=== PATIENT | female | born 1935 | race Caucasian/White ===

== ENCOUNTER → 2016-10-10 | Outpatient (CLI) | payer MEDICARE, OTHER ==
[~2016-10-10] VITALS: Ht 167.6 cm; Wt 82.6 kg
[~2016-10-10] MED LIST: AMLO5TAB2 PO; ASPI1TAB PO; ASPI81TA2 PO; ATEN25TA PO; CENT1TAB PO; CENTTAB PO; CHLO25TA3 PO; CLAR10CA3 PO; CO Q400C2 PO; ELIQ5TAB PO; FERR325T3 PO; FLAX100012 PO; FLAX10002 PO; FLAX10005 PO; HYDR-4266 PO; HYDR25TAB PO; K-TA1TAB PO; METO-209 PO; METO100T PO; METO50TA2 PO; MICARDIS PO; MULT1TAB18 PO; NEXI40CA PO; NITR4TASL SL; NORC1TAB4 PO; NS 1,000 ML IV SCH; OSCA200T PO; PROPOFOL 200 MG/20 ML VIAL As Ordered ONE; SENN1TAB2 PO; SIMV20TA2 PO; SIMV40TA2 PO; SPIR25TA2 PO; TYLE325T5 PO
--- NOTE | 2016-10-10 07:46 | ROOR ---
Patient Name: Yael Steward Procedure Date: 10/10/2016 7:29 AM Date of : 1935 Age: 81 Room: [facility] Gender: Female Note Status: Finalized Procedure: Colonoscopy Indications: High risk colon cancer surveillance: Personal history of colon cancer, Last colonoscopy: August 2015 Providers: Simon PALACIOS MD Referring MD: Ignacio Riley MD Requesting Provider: Medicines: Monitored Anesthesia Care Complications: No immediate complications. Procedure: Pre-Anesthesia Assessment: - The heart rate, respiratory rate, oxygen saturations, blood pressure, adequacy of pulmonary ventilation, and response to care were monitored throughout the procedure. The Colonoscope was introduced through the anus and advanced to the ileocolonic anastomosis. The colonoscopy was performed without difficulty. The patient tolerated the procedure well. The quality of the bowel preparation was good. Findings: The perianal and digital rectal examinations were normal. There was evidence of a prior functional end-to-end ileo-colonic anastomosis in the transverse colon. This was patent and was characterized by healthy appearing mucosa. The anastomosis was traversed. Multiple medium-mouthed diverticula were found in the sigmoid colon. There was evidence of diverticular spasm. The exam was otherwise without abnormality on direct and retroflexion views. (Exam: Complete, Prep: Good or Excellent.) Impression: - Patent functional end-to-end ileo-colonic anastomosis, characterized by healthy appearing mucosa. - Severe diverticulosis in the sigmoid colon. There was evidence of diverticular spasm. - The examination was otherwise normal on direct and retroflexion views. - No specimens collected. Recommendation: - Repeat colonoscopy in 1 year for surveillance based on personal history of colon cancer. Simon Palacios MD Simon PALACIOS MD 10/10/2016 7:46:25 AM This report has been signed electronically. Number of Addenda: 0 Note Initiated On: 10/10/2016 7:29 AM Estimated Blood Loss: Estimated blood loss: none.
[2016-10-10 08:05] VITALS: BP 163/99
== END | disposition home or self-care (01) ==
LOC: M OPP 06:49
PROVIDERS: ATTEND Internal Medicine Gastroenterology
DX: Z08 Encounter for follow-up examination after completed treatment for malignant neoplasm (principal); Z85.038 Personal history of other malignant neoplasm of large intestine; K57.30 Diverticulosis of large intestine without perforation or abscess without bleeding; I48.91 Unspecified atrial fibrillation; I25.10 Atherosclerotic heart disease of native coronary artery without angina pectoris; I10 Essential (primary) hypertension; D64.9 Anemia, unspecified; M19.90 Unspecified osteoarthritis, unspecified site; F33.9 Major depressive disorder, recurrent, unspecified; F41.9 Anxiety disorder, unspecified; Z98.0 Intestinal bypass and anastomosis status; Z95.5 Presence of coronary angioplasty implant and graft; I25.2 Old myocardial infarction; Z87.891 Personal history of nicotine dependence; Z79.899 Other long term (current) drug therapy; Z79.82 Long term (current) use of aspirin; Z88.0 Allergy status to penicillin

== ENCOUNTER 2018-04-02 08:52 | Emergency (ER) | payer MEDICARE, OTHER | END 2018-04-02 11:29 | disposition home or self-care (01) | LOC: M ED 08:52 | DX: M25.572 Pain in left ankle and joints of left foot (principal); I10 Essential (primary) hypertension; K21.9 Gastro-esophageal reflux disease without esophagitis; I25.10 Atherosclerotic heart disease of native coronary artery without angina pectoris; Z79.899 Other long term (current) drug therapy; Z79.82 Long term (current) use of aspirin; Z79.01 Long term (current) use of anticoagulants; Z88.0 Allergy status to penicillin; Z87.891 Personal history of nicotine dependence | CPT/HCPCS: 93971 ==

== ENCOUNTER 2020-03-20 10:36 | Emergency (ER) | payer MEDICARE, OTHER ==
[~2020-03-20] VITALS: Ht 167.6 cm; Wt 75.6 kg
[~2020-03-20 10:36] MED LIST changes: +AMLO1TAB24 PO; -AMLO5TAB2 PO; -ASPI1TAB PO; +ASPI81TA26 PO; +HYDR-2541 PO; +HYDR-3910 PO; -HYDR-4266 PO; -HYDR25TAB PO; -METO-209 PO; +METO1TAB33 PO; -NORC1TAB4 PO; +NORC1TAB7 PO; -NS 1,000 ML IV SCH; -PROPOFOL 200 MG/20 ML VIAL As Ordered ONE; +SENN-53 PO; -SENN1TAB2 PO; -SIMV40TA2 PO; +SIMV40TA20 PO; +SPIR-10 PO; -SPIR25TA2 PO
[2020-03-20 12:48] LABS: BASO % 0.4 % (0.0-1.0); EOS # 0.1 10^3/uL (0.0-0.5); EOS % 1.3 % (0.0-3.0); HEMOGLOBIN 15.5 g/dl (12.0-15.5); LYMPH # 2.1 10^3/uL (1.5-5.0); LYMPH % 22.4 % (24.0-44.0); MEAN CORPUSCULAR VOLUME 91.1 fl (80.0-96.0); MONO # 0.7 10^3/uL (0.0-0.8); MONO % 7.8 % (0.0-5.0); NEUTROPHILS # 6.2 10^3/uL (1.5-8.5); NEUTROPHILS % 67.8 % (36.0-66.0); PLATELET COUNT, AUTOMATED 164 10^3/uL (150-450); RED BLOOD COUNT 5.16 10^6/uL (4.00-5.40); WHITE BLOOD COUNT 9.2 10^3/uL (4.0-10.0)
[2020-03-20 13:22] LABS: ACETAMINOPHEN LEVEL < 2.0 UG/ML (10.0-30.0); ALBUMIN 3.8 GM/DL (3.2-5.2); ALT/SGPT 23 U/L (12-78); BILIRUBIN,DIRECT 0.2 MG/DL (0.0-0.2); BILIRUBIN,TOTAL 0.6 MG/DL (0.2-1.0); BLOOD UREA NITROGEN 14 MG/DL (7-18); CARBON DIOXIDE LEVEL 30 MEQ/L (21-32); CHLORIDE LEVEL 106 MEQ/L (98-107); CREATININE FOR GFR 0.81 MG/DL (0.55-1.30); GLOMERULAR FILTRATION RATE > 60.0 (>32); GLUCOSE, FASTING 77 MG/DL (70-100); POTASSIUM SERUM 4.3 MEQ/L (3.5-5.1); RHEUMATOID FACTOR QUANT < 10.0 IU/ML (<15.0); SALICYLATE LEVEL < 1.7 MG/DL (5.0-30.0); SODIUM LEVEL 138 MEQ/L (136-145); TOTAL PROTEIN 6.9 GM/DL (6.4-8.2)
[2020-03-20 13:27] LABS: ERYTHROCYTE SEDIMENTATION RATE 4 mm/hr (0-30)
[2020-03-20 13:39] VITALS: BP 153/90
[2020-03-20 13:42] LABS: AMPHETAMINES LEVEL URINE NEGATIVE (NEGATIVE); BARBITURATES URINE NEGATIVE (NEGATIVE); BENZODIAZEPINES URINE NEGATIVE (NEGATIVE); CANNABINOIDS URINE NEGATIVE (NEGATIVE); COCAINE METABOLITE URINE NEGATIVE (NEGATIVE); METHADONE URINE NEGATIVE (NEGATIVE); OPIATES URINE NEGATIVE (NEGATIVE); PHENCYCLIDINE URINE NEGATIVE (NEGATIVE)
== END 2020-03-20 13:40 | disposition home or self-care (01) ==
LOC: M ED 10:36
DX: R53.81 Other malaise (principal); R53.83 Other fatigue; E11.9 Type 2 diabetes mellitus without complications; I10 Essential (primary) hypertension; E78.00 Pure hypercholesterolemia, unspecified; Z95.5 Presence of coronary angioplasty implant and graft; Z79.899 Other long term (current) drug therapy; Z79.82 Long term (current) use of aspirin; Z88.0 Allergy status to penicillin
CPT/HCPCS: 36415; 80048; 80076; 80307; 81001; 85025; 85652; 86431; 87086; 99284; G0480

== ENCOUNTER → 2020-05-24 | Outpatient (CLI) | payer MEDICARE, OTHER ==
[~2020-05-24] MED LIST changes: +MULTCAP PO
== END ==
LOC: M LABSMTC 10:26
PROVIDERS: ATTEND Anesthesiology
DX: Z01.812 Encounter for preprocedural laboratory examination (principal); Z20.828 Contact with and (suspected) exposure to other viral communicable diseases

== ENCOUNTER 2020-05-29 07:59 | Day surgery (SDC) | payer MEDICARE, OTHER ==
[~2020-05-29] VITALS: Ht 167.6 cm; Wt 74.4 kg
[~2020-05-29 07:59] MED LIST changes: +LIDOCAINE 2% 100MG/5ML SDV (FOR ANES.) As Ordered ONE; +NS 1,000 ML IV ONE; +propofoL 200 MG/20 ML VIAL As Ordered ONE
--- NOTE | 2020-05-29 09:32 | ROOR ---
Patient Name: Yael Steward Procedure Date: 05/29/2020 8:59 AM Date of : 1935 Age: 85 Room: [facility] Gender: Female Note Status: Finalized Procedure: Colonoscopy Indications: High risk colon cancer surveillance: Personal history of colon cancer (resection in 2015) Providers: Simon PALACIOS MD Referring MD: Simon Denton MD, Ignacio Riley MD Requesting Provider: Medicines: Monitored Anesthesia Care Complications: No immediate complications. Procedure: Pre-Anesthesia Assessment: - The heart rate, respiratory rate, oxygen saturations, blood pressure, adequacy of pulmonary ventilation, and response to care were monitored throughout the procedure. The Colonoscope was introduced through the anus and advanced to the ileocolonic anastomosis. The colonoscopy was performed without difficulty. The patient tolerated the procedure well. The quality of the bowel preparation was good. Findings: The perianal and digital rectal examinations were normal. There was evidence of a prior end-to-side ileo-colonic anastomosis in the mid transverse colon. This was patent and was characterized by healthy appearing mucosa. Multiple small and large-mouthed diverticula were found in the sigmoid colon. There was evidence of diverticular spasm. Small Internal Hemorrhoids. The exam was otherwise without abnormality on direct and retroflexion views. Impression: - Patent end-to-side ileo-colonic anastomosis, characterized by healthy appearing mucosa. - Moderate diverticulosis in the sigmoid colon. There was evidence of diverticular spasm. - Small Internal Hemorrhoids. - The examination was otherwise normal on direct and retroflexion views. - No specimens collected. Recommendation: - No repeat colonoscopy due to age. Procedure Code(s): --- Professional --- 40351, Colonoscopy, flexible; diagnostic, including collection of specimen(s) by brushing or washing, when performed (separate procedure) Diagnosis Code(s): --- Professional --- K57.30, Diverticulosis of large intestine without perforation or abscess without bleeding Z98.0, Intestinal bypass and anastomosis status Z85.038, Personal history of other malignant neoplasm of large intestine CPT copyright 2019 [employer]. All rights reserved. The codes documented in this report are preliminary and upon medical coder review may be revised to meet current compliance requirements. Simon Palacios MD Simon PALACIOS MD 05/29/2020 9:33:07 AM Electronically signed by Simon PALACIOS MD Number of Addenda: 0 Note Initiated On: 05/29/2020 8:59 AM Estimated Blood Loss: Estimated blood loss: none.
[2020-05-29 09:50] VITALS: BP 170/87
== END 2020-05-29 10:25 | disposition home or self-care (01) ==
LOC: M OPP 07:59
PROVIDERS: ATTEND Internal Medicine Gastroenterology
DX: Z12.11 Encounter for screening for malignant neoplasm of colon (principal); Z85.038 Personal history of other malignant neoplasm of large intestine; Z98.0 Intestinal bypass and anastomosis status; K57.30 Diverticulosis of large intestine without perforation or abscess without bleeding; K64.8 Other hemorrhoids; I48.91 Unspecified atrial fibrillation; Z95.5 Presence of coronary angioplasty implant and graft; Z87.891 Personal history of nicotine dependence; Z79.899 Other long term (current) drug therapy; Z88.0 Allergy status to penicillin

== ENCOUNTER → 2020-09-06 | Outpatient (REF) | payer MEDICARE, OTHER ==
[~2020-09-06] MED LIST changes: -LIDOCAINE 2% 100MG/5ML SDV (FOR ANES.) As Ordered ONE; -NS 1,000 ML IV ONE; -propofoL 200 MG/20 ML VIAL As Ordered ONE
== END ==
LOC: M LAB REF 16:47
PROVIDERS: ATTEND Nurse Practitioner Family
DX: N39.0 Urinary tract infection, site not specified (principal)

== ENCOUNTER → 2020-11-02 | Outpatient (REF) | payer MEDICARE, OTHER | LOC: M LAB REF 16:53 | PROVIDERS: ATTEND Nurse Practitioner Family | DX: N39.0 Urinary tract infection, site not specified (principal) ==

== ENCOUNTER 2021-02-18 14:27 | Inpatient (IN) | payer MEDICARE, OTHER ==
[~2021-02-18] VITALS: Ht 167.6 cm; Wt 80.9 kg
[2021-02-18] MEDS ORDERED: ACETAMINOPHEN 325 MG TAB PO ONE (14:35)
--- NOTE | 2021-02-18 15:08 | REP ---
INDICATION: DYSPNEA/COUGH COMPARISON: 03/01/2014 TECHNIQUE: Portable AP view of the chest FINDINGS: The mediastinum and cardiac silhouette are stable and within normal limits for portable technique. The lung hitchcock are clear without acute consolidation, effusion, or pneumothorax. Skeletal structures are intact. IMPRESSION: No acute cardiopulmonary process appreciated. <Electronically signed by Luan Lowe > 02/18/21 [id number]
[2021-02-18 15:10] LABS: BASO % 0.3 % (0.0-1.0); EOS % 0.2 % (0.0-3.0); HEMATOCRIT 47.4 % (36.0-47.0); HEMOGLOBIN 16.2 g/dl (12.0-15.5); LYMPH # 0.4 10^3/uL (1.5-5.0); LYMPH % 3.9 % (24.0-44.0); MEAN CORPUSCULAR HEMOGLOBIN 29.6 pg (27.0-33.0); MEAN CORPUSCULAR HGB CONC 34.2 g/dl (32.0-36.5); MEAN CORPUSCULAR VOLUME 86.5 fl (80.0-96.0); MONO # 0.5 10^3/uL (0.0-0.8); MONO % 4.6 % (2.0-8.0); NEUTROPHILS % 90.5 % (36.0-66.0); PLATELET COUNT, AUTOMATED 159 10^3/uL (150-450); RED BLOOD COUNT 5.48 10^6/uL (4.00-5.40)
[2021-02-18 15:46] LABS: ALBUMIN 3.5 GM/DL (3.2-5.2); ALT/SGPT 22 U/L (12-78); BILIRUBIN,DIRECT 0.4 MG/DL (0.0-0.2); BILIRUBIN,TOTAL 1.2 MG/DL (0.2-1.0); BLOOD UREA NITROGEN 14 MG/DL (7-18); CALCIUM LEVEL 8.6 MG/DL (8.8-10.2); CARBON DIOXIDE LEVEL 25 MEQ/L (21-32); CHLORIDE LEVEL 106 MEQ/L (98-107); CK-MB VALUE MASS < 1.0 NG/ML (<3.6); CPK CREATINE PHOSPHOKINASE 36 U/L (26-192); CREATININE FOR GFR 0.91 MG/DL (0.55-1.30); GLOMERULAR FILTRATION RATE > 60.0 (>32); GLUCOSE, FASTING 116 MG/DL (70-100); MB/CK RELATIVE INDEX 2.78 (< OR =4); NT-PRO BNP 1604 PG/ML (<450); POTASSIUM SERUM 3.5 MEQ/L (3.5-5.1); SODIUM LEVEL 139 MEQ/L (136-145); THYROID STIMULATING HORMONE 0.132 uIU/ML (0.358-3.740); TROPONIN I < 0.02 NG/ML (< 0.10)
[2021-02-18 16:16] LABS: RSV AMPLIFICATION NEGATIVE (NEGATIVE)
[2021-02-18] MEDS ORDERED: ISOVUE-370 76% 100ML VIAL As Ordered ONE (16:50)
--- NOTE | 2021-02-18 17:25 | REPVR ---
PROCEDURE INFORMATION: Exam: CT Chest With Contrast; Diagnostic Exam date and time: 02/18/2021 4:57 PM Age: 85 years old Clinical indication: Fever; Additional info: Fuo TECHNIQUE: Imaging protocol: Diagnostic computed tomography of the chest with contrast. Radiation optimization: All CT scans at this facility use at least one of these dose optimization techniques: automated exposure control; mA and/or kV adjustment per patient size (includes targeted exams where dose is matched to clinical indication); or iterative reconstruction. Contrast material: ISOVUE 370; Contrast volume: 100 ml; Contrast route: INTRAVENOUS (IV); COMPARISON: CR PORTABLE CHEST X-RAY 02/18/2021 2:43 PM FINDINGS: Thyroid: Thyroid gland is enlarged and multi-nodular. Lungs: Pulmonary vascular/interstitial pattern does not suggest active pulmonary edema. No suspicious lung mass or air space process. No central endobronchial lesion. Atelectasis is present in the dependent portions of the lungs. Pleural spaces: No pleural effusion or pneumothorax. Heart: No overt cardiac enlargement or abnormal volume of pericardial fluid. Aorta: Thoracic aorta is ectatic and atherosclerotic. No focal aneurysm or dissection. Great vessels off aortic arch: Atherosclerotic calcifications in the coronary vessels. Lymph nodes: No enlarged mediastinal lymph nodes. Bones/joints: Multi-level, age-related thoracic degenerative disc disease is present. Soft tissues: No asymmetric abnormality of the extrathoracic soft tissues. IMPRESSION: 1. No acute or concerning focal thoracic abnormality to explain fever of unknown origin. 2. Ectatic atherosclerotic aorta without evidence of an acute complication. 3. Enlarged multinodular thyroid gland. This can be evaluated with outpatient sonography Electronically signed by: Los Garcia On 02/18/2021 17:24:47 PM
--- NOTE | 2021-02-18 17:28 | REPVR ---
PROCEDURE INFORMATION: Exam: CT Abdomen And Pelvis With Contrast Exam date and time: 02/18/2021 4:57 PM Age: 85 years old Clinical indication: Fever; Additional info: Fuo TECHNIQUE: Imaging protocol: Computed tomography of the abdomen and pelvis with contrast. Radiation optimization: All CT scans at this facility use at least one of these dose optimization techniques: automated exposure control; mA and/or kV adjustment per patient size (includes targeted exams where dose is matched to clinical indication); or iterative reconstruction. Contrast material: ISOVUE 370; Contrast volume: 100 ml; Contrast route: INTRAVENOUS (IV); COMPARISON: CT ABD PELVIS W/O FOL BY WIT 09/25/2015 1:39 PM FINDINGS: Liver: Liver appears normal with no focal abnormality. Gallbladder and bile ducts: Gallbladder is surgically absent. Pancreas: Pancreas appears normal. No focal mass or peripancreatic inflammation. Spleen: Spleen appears homogeneous without focal mass. Adrenal glands: Adrenal glands are normal in appearance. Kidneys and ureters: Right kidney appears normal. Left kidney demonstrates perinephric stranding and mild urothelial enhancement in the renal pelvis, along with a nonobstructive stone. An upper pole simple fluid cyst is also demonstrated measuring less than 1 cm in size. Stomach and bowel: No evidence of small bowel obstruction. Diverticular changes are present within the colon without inflammation. Appendix: Appendix is not seen. No RLQ inflammation to suggest appendicitis. Intraperitoneal space: No pneumoperitoneum. Vasculature: Atherosclerotic change present in the aorta, without aneurysm. Main portal and splenic veins enhance normally. Lymph nodes: No enlarged lymph nodes. Urinary bladder: Urinary bladder demonstrates mildly thickened wall and perivesicular stranding. Reproductive: Female reproductive organs appear unremarkable. Bones/joints: Bony structures are normal except for lumbar spine degenerative disc changes. Soft tissues: Unremarkable. IMPRESSION: 1. Perinephric stranding involving the left kidney with perhaps mildly prominent urothelial enhancement, and wall thickening and stranding around the bladder. This may likely represent cystitis and ascending urinary tract infection without obstruction or focal pyelonephritis at this point. 2. No concerning acute bowel abnormality. 3. Colonic diverticular change without active inflammation Electronically signed by: Los Garcia On 02/18/2021 17:28:35 PM
[2021-02-18] MEDS ORDERED: MOM 30ML SUSPENSION UDC PO PRN (18:10)
[2021-02-18] MEDS ORDERED: ACETAMINOPHEN TAB 650MG DOSE (2X325MG) PO PRN (18:10)
[2021-02-18] MEDS ORDERED: MAALOX 30 ML SUSP *UDC PO PRN (18:10)
--- NOTE | 2021-02-18 18:14 | HPEPDOC ---
[facility] Medical History & Physical Date of Admission Feb 18, 2021 Date of Service: Feb 18, 2021 History and Physical CHIEF COMPLAINT: Fever HISTORY OF PRESENT ILLNESS: 85-year-old female with a past medical history of CAD status post stenting, atrial fibrillation on Eliquis, CHF unspecified, colon cancer status post resection, presented to the ER from home with symptoms of dysuria and mild confusion. Found to have a fever of 104 in the emergency department. She has leukocytosis of 11,000. LA 1.5. Also found to be in atrial fibrillation with RVR, which improved after her fever decreased with Tylenol. CT chest was unremarkable however CT abdomen showing perinephric stranding involving the left kidney suggestive of possible early cystitis and pyelonephritis. PAST MEDICAL HISTORY: Afib on eliquis CAD s/p stenting GERD HLD Arthritis PAST SURGICAL HISTORY: Right hemicolectomy for colon cancer in 09/[address] Millan Cholecystectomy Tubal ligation SOCIAL HISTORY: Lives at home Patient denies smoking Patient denies etoh use Patient denies illicit drug use ALLERGIES: Please see below. REVIEW OF SYSTEMS: 10 point ROS conducted, relevant findings are noted in the HPI. HOME MEDICATIONS: Please see below. PHYSICAL EXAMINATION: VITAL SIGNS: please see below General: NAD, comfortable HEENT: PERRLA, EOMI, sclerae clear Neck: supple, normal ROM, no JVD Respiratory: lungs CTAB, no wheeze, no rales, no crackles CVS: RRR, normal S1, S2, no murmurs Abdo: soft, no masses, no hepatosplenomegaly, BS+, no rebound tenderness Extremities: no edema, pulses 2+ MSK: no joint deformities, normal ROM Neuro: no focal neuro deficits, moving all 4 extremities, CN2-12 intact. Strength 5/5 in all 4 extremities. No nystagmus. Psych: calm, cooperative, AAO x 3 LABORATORY DATA: See below. IMAGING: CT abdomen pelvis with IV contrast 02/18/2021: IMPRESSION: 1. Perinephric stranding involving the left kidney with perhaps mildly prominent urothelial enhancement, and wall thickening and stranding around the bladder. This may likely represent cystitis and ascending urinary tract infection without obstruction or focal pyelonephritis at this point. 2. No concerning acute bowel abnormality. 3. Colonic diverticular change without active inflammation CT chest with IV 02/18/2021: 1. No acute or concerning focal thoracic abnormality to explain fever of unknown origin. 2. Ectatic atherosclerotic aorta without evidence of an acute complication. 3. Enlarged multinodular thyroid gland. This can be evaluated with outpatient sonography CXR 02/18/2021: IMPRESSION: No acute cardiopulmonary process appreciated. MICROBIOLOGY: Please see below. ASSESSMENT: 85-year-old female with a past medical history of CAD status post stenting, atrial fibrillation on Eliquis, CHF unspecified, colon cancer status post resection, presented to the ER from home with symptoms of dysuria and mild confusion. Found to have a fever of 104 in the emergency department. She has leukocytosis of 11,000. LA 1.5. Also found to be in atrial fibrillation with RVR, which improved after her fever decreased with Tylenol. CT chest was unremarkable however CT abdomen showing perinephric stranding involving the left kidney suggestive of possible early cystitis and pyelonephritis. PLAN: #Sepsis 2/2 likely cystisis and pyelonephritis: COVID and flu negative. WBC 11.0. LA 1.5. T 104. Afib with RVR to 130. Give 1L bolus. Start NS 80 cc/hr. Empiric cipro. Urine cultures and blood cultures sent. #Afib with RVR: improved with fever. Resume home BB. Give IVF. Start abx. Suspect increased 2/2 sepsis. #Hx of Colon Ca: s/p [place] [address] Millan. #HTN: resume home meds #CAD: resume home meds. S/p stenting. DVT ppx: on eliquis Dispo: admission expect to last > 2 midnights Vital Signs Vital Signs Date Time Temp Pulse Resp B/P (MAP) Pulse Ox O2 Delivery O2 Flow Rate FiO2 02/18/21 17:30 136/75 (95) 02/18/21 17:27 103 92 02/18/21 16:21 100.6 02/18/21 15:06 20 Room Air Laboratory Data Labs 24H Laboratory Tests 2 02/18/21 14:50: Immature Granulocyte % (Auto) 0.5, Neutrophils (%) (Auto) 90.5H, Lymphocytes (%) (Auto) 3.9L, Monocytes (%) (Auto) 4.6, Eosinophils (%) (Auto) 0.2, Basophils (%) (Auto) 0.3, Neutrophils # (Auto) 10.0H, Lymphocytes # (Auto) 0.4L, Monocytes # (Auto) 0.5, Eosinophils # (Auto) 0.0, Basophils # (Auto) 0.0, Nucleated Red Blood Cells % (auto) 0.0, Anion Gap 8, Glomerular Filtration Rate > 60.0, Lactic Acid Level 1.5, Calcium Level 8.6L, Total Bilirubin 1.2H, Direct Bilirubin 0.4H, Aspartate Amino Transf (AST/SGOT) 23, Alanine Aminotransferase (ALT/SGPT) 22, Alkaline Phosphatase 93, Total Creatine Kinase 36, Creatine Kinase MB < 1.0, Creatine Kinase MB Relative Index 2.78, Troponin I < 0.02, VA-Qrp-X-Type Natriuretic Peptide 1604H, Total Protein 7.0, Albumin 3.5, Albumin/Globulin Ratio 1.0L, Thyroid Stimulating Hormone (TSH) 0.132L, Coronavirus (COVID- 19)(PCR) NEGATIVE, Influenza Type A (RT-PCR) NEGATIVE, Influenza Type B (RT-PCR) NEGATIVE, Respiratory Syncytial Virus (PCR) NEGATIVE 02/18/21 15:43: Urine Color YELLOW, Urine Appearance HAZY, Urine pH 6.0, Urine Specific [place] 1.009, Urine Protein 2+H, Urine Glucose (UA) NEGATIVE, Urine Ketones TRACEH, Urine Blood 2+H, Urine Nitrite NEGATIVE, Urine Bilirubin NEGATIVE, Urine Urobilinogen 0.2, Urine Leukocyte Esterase TRACEH, Urine WBC (Auto) 13H, Urine RBC (Auto) 6H, Urine Hyaline Casts (Auto) 0, Urine Bacteria (Auto) NEGATIVE, Urine Squamous Epithelial Cells 0, Urine Mucus (Auto) SMALL, Urine Sperm (Auto) CBC/BMP Laboratory Tests 02/18/21 14:50 Microbiology Microbiology 02/18/21 Urine Culture, Received Pending 02/18/21 Blood Culture, Received Pending 02/18/21 Blood Culture, Received Pending Home Medications Scheduled Amlodipine Besylate (Amlodipine Besylate) 5 Mg Tab, 5 MG PO DAILY Apixaban (Eliquis) 5 Mg Tab, 5 MG PO BID Aspirin (Aspirin EC) 81 Mg Tab, 81 MG PO DAILY Metoprolol Succinate (Metoprolol Succinate) 100 Mg Tab, 100 MG PO DAILY Multivitamin (Multivitamins) 1 Each Capsule, 1 CAP PO DAILY Nitroglycerin (Nitrostat) 0.4 Mg Subl, 0.4 MG SL ASDIRECTED Simvastatin (Simvastatin) 40 Mg Tab, 20 MG PO DAILY Spironolactone (Spironolactone) 25 Mg Tab, 25 MG PO DAILY [Micardis] , 80 MG PO DAILY Allergies Coded Allergies: Penicillins (Verified Allergy, Intermediate, 05/22/20) vomiting MILDRED HARGROVE MD Feb 18, 2021 18:14
[2021-02-18] MEDS ORDERED: NS 1,000 ML IV ONE (19:00)
[2021-02-18] MEDS: CIPROFLOXACIN 400 MG in IV 1 EA IV SCH (19:16)
--- NOTE | 2021-02-18 19:27 | ECGEPIP ---
[facility] - ED Test Date: 2021-02-18 Pat Name: ELENI SIRAEL Department: Room: - Gender: Female Database Administration Manager: LG : 1935 Requested By: Favian Jane Order Number: [id number] Reading MD: Summer Espinoza Measurements Intervals Couch Rate: 120 P: RI: QRS: -32 QRSD: 82 T: 123 QT: 314 QTc: 443 Interpretive Statements Atrial fibrillation with rapid ventricular response Left axis deviation ST & T wave abnormality, consider ischemia No prior Electronically Signed on 02-18-2021 19:26:54 EDT by Summer Espinoza
[2021-02-18 20:30] VITALS: BP 138/82
[2021-02-19] VITALS: BP 146/98
[2021-02-19 04:00] VITALS: BP 162/94
[2021-02-19 06:40] LABS: BASO % 0.3 % (0.0-1.0); EOS % 0.2 % (0.0-3.0); HEMATOCRIT 43.2 % (36.0-47.0); HEMOGLOBIN 14.6 g/dl (12.0-15.5); LYMPH # 1.1 10^3/uL (1.5-5.0); MEAN CORPUSCULAR HEMOGLOBIN 29.2 pg (27.0-33.0); MEAN CORPUSCULAR HGB CONC 33.8 g/dl (32.0-36.5); MEAN CORPUSCULAR VOLUME 86.4 fl (80.0-96.0); MONO # 0.9 10^3/uL (0.0-0.8); MONO % 8.1 % (2.0-8.0); NEUTROPHILS # 9.2 10^3/uL (1.5-8.5); PLATELET COUNT, AUTOMATED 146 10^3/uL (150-450); WHITE BLOOD COUNT 11.3 10^3/uL (4.0-10.0)
[2021-02-19 07:07] LABS: ALBUMIN 2.8 GM/DL (3.2-5.2); ALT/SGPT 22 U/L (12-78); BILIRUBIN,TOTAL 0.9 MG/DL (0.2-1.0); BLOOD UREA NITROGEN 12 MG/DL (7-18); CALCIUM LEVEL 8.9 MG/DL (8.8-10.2); CARBON DIOXIDE LEVEL 26 MEQ/L (21-32); CHLORIDE LEVEL 107 MEQ/L (98-107); CREATININE FOR GFR 0.63 MG/DL (0.55-1.30); GLOMERULAR FILTRATION RATE > 60.0 (>32); GLUCOSE, FASTING 109 MG/DL (70-100); MAGNESIUM LEVEL 1.6 MG/DL (1.8-2.4); POTASSIUM SERUM 3.5 MEQ/L (3.5-5.1); SODIUM LEVEL 140 MEQ/L (136-145); TOTAL PROTEIN 6.4 GM/DL (6.4-8.2)
[2021-02-19 08:00] VITALS: BP 146/77
[2021-02-19] MEDS: MAG SULF 1GM/100ML (MAG RUN) 1 GM in IV 1 EA IV SCH ×2 (08:33→10:01)
[2021-02-19] MEDS: CIPROFLOXACIN 400 MG in IV 1 EA IV SCH (08:33)
[2021-02-19] MEDS ORDERED: TELM1TAB33 PO (08:58)
[2021-02-19] MEDS ORDERED: AMLO1TAB25 PO (08:58)
[2021-02-19] MEDS ORDERED: METO1TAB7 PO (08:58)
[2021-02-19] MEDS ORDERED: PATIENT COMMENT (08:58)
[2021-02-19] MEDS ORDERED: POTASSIUM CHLORIDE 10 MEQ SR TABLET PO ONE (09:00)
[2021-02-19] MEDS ORDERED: HOME MED LIST COMPLETE! XX SCH (09:00)
[2021-02-19] MEDS ORDERED: NITROGLYCERIN 0.4 MG SUBL TABLET SL PRN (09:10)
[2021-02-19] MEDS: ASPIRIN 81MG ENTERIC TABLET PO SCH (10:00)
[2021-02-19] MEDS: METOPROLOL SUCC (TopROL XL) 50MG **XL** TAB PO SCH (10:00)
[2021-02-19] MEDS: APIXABAN 5 MG TAB (ELIQUIS) PO SCH ×2 (10:01→20:27)
[2021-02-19] MEDS: SPIRONOLACTONE 25 MG TAB PO SCH (10:01)
[2021-02-19] MEDS ORDERED: VANCOMYCIN HCL 1,000 MG, VIAL MATE ADAPTER 1 EACH in NS 250 ML IV SCH (10:30)
--- NOTE | 2021-02-19 10:46 | IPNPDOC ---
Date Seen The patient was seen on 02/19/21. Progress Note SUBJECTIVE: Patient seen examined at bedside. Doing well overnight. Afebrile. Heart rate has been stable at 98 bpm. Continues to be in A. fib. Denies any fevers chills chest pain shortness palpitations nausea vomiting diarrhea. Does continue to report ongoing lower abdominal pain. OBJECTIVE PHYSICAL EXAMINATION: VITAL SIGNS: please see below General: NAD, comfortable HEENT: PERRLA, EOMI, sclerae clear Neck: supple, normal ROM, no JVD Respiratory: lungs CTAB, no wheeze, no rales, no crackles CVS: RRR, normal S1, S2, no murmurs Abdo: Lower abdominal tenderness overlying the bladder. Extremities: no edema, pulses 2+ MSK: no joint deformities, normal ROM Neuro: no focal neuro deficits, moving all 4 extremities, CN2-12 intact. Strength 5/5 in all 4 extremities. No nystagmus. Psych: calm, cooperative, AAO x 3 LABORATORY DATA, IMAGING STUDIES, MICROBIOLOGY: Please see below. Echocardiogram: Ordered on 02/18/2021. Pending. DVT prophylaxis ordered?: On Eliquis ASSESSMENT AND PLAN: 85-year-old female with a past medical history of CAD status post stenting, atrial fibrillation on Eliquis, CHF unspecified, colon cancer status post resection, presented to the ER from home with symptoms of dysuria and mild confusion. Found to have a fever of 104 in the emergency department. She has leukocytosis of 11,000. LA 1.5. Also found to be in atrial fibrillation with RVR, which improved after her fever decreased with Tylenol. CT chest was unremarkable however CT abdomen showing perinephric stranding involving the left kidney suggestive of possible early cystitis and pyelonephr itis. PLAN: #Sepsis 2/2 likely cystitis and pyelonephritis: resolved. COVID and flu negative. WBC 11.3. LA 1.5. T 104. HR improved. Afebrile overnight. Received empiric ciprofloxacin x 1 day. Prelim blood cultures growing gram positive coccie in clusters and gram positive rods (2/2 bottles of 1 set, 2nd set still pending). Urine cx positive for gram neg rods. Converted cipro to vancomycin and cefepime. Repeat blood cultures ordered on 02/19/21. Patient had an echo ordered on 02/18/21 to assess for LVEF. #Afib with RVR: HR in 90s. Improved with treatment of sepsis. #Hx of Colon Ca: s/[place] [address] Millan. #elevated BNP. likely in setting of afib with RVR. Will check 2D echo. recieved 1 L NS bolus for sepsis. Euvolemic. #HTN: resume home meds. Telmisartain 20 mg qhs. Amlodipine 10 mg daioy. #CAD: resume home meds. S/p stenting. c/w ASA, eliquis. metoprolol. Simvastatin. Nitroglycerin. DVT ppx: on eliquis Dispo: admission expect to last > 2 midnights. PT and OT ordered. VS, I&O, 24H, Fishbone Vital Signs/I&O Vital Signs Date Time Temp Pulse Resp B/P (MAP) Pulse Ox O2 Delivery O2 Flow Rate FiO2 02/19/21 10:01 100 146/77 02/19/21 08:00 97.6 19 96 Room Air 02/18/21 19:15 2.0 I&O- Last 24 Hours up to 6 AM 02/19/21 06:00 Output Total 850 ml Balance -850 ml Laboratory Data 24H LABS Laboratory Tests 2 02/18/21 14:50: Immature Granulocyte % (Auto) 0.5, Neutrophils (%) (Auto) 90.5H, Lymphocytes (%) (Auto) 3.9L, Monocytes (%) (Auto) 4.6, Eosinophils (%) (Auto) 0.2, Basophils (%) (Auto) 0.3, Neutrophils # (Auto) 10.0H, Lymphocytes # (Auto) 0.4L, Monocytes # (Auto) 0.5, Eosinophils # (Auto) 0.0, Basophils # (Auto) 0.0, Nucleated Red Blood Cells % (auto) 0.0, Anion Gap 8, Glomerular Filtration Rate > 60.0, Lactic Acid Level 1.5, Calcium Level 8.6L, Total Bilirubin 1.2H, Direct Bilirubin 0.4H, Aspartate Amino Transf (AST/SGOT) 23, Alanine Aminotransferase (ALT/SGPT) 22, Alkaline Phosphatase 93, Total Creatine Kinase 36, Creatine Kinase MB < 1.0, Creatine Kinase MB Relative Index 2.78, Troponin I < 0.02, OS-Nwa-Y-Type Natriuretic Peptide 1604H, Total Protein 7.0, Albumin 3.5, Albumin/Globulin Ratio 1.0L, Thyroid Stimulating Hormone (TSH) 0.132L, Coronavirus (COVID- 19)(PCR) NEGATIVE, Influenza Type A (RT-PCR) NEGATIVE, Influenza Type B (RT-PCR) NEGATIVE, Respiratory Syncytial Virus (PCR) NEGATIVE 02/18/21 15:43: Urine Color YELLOW, Urine Appearance HAZY, Urine pH 6.0, Urine Specific [place] 1.009, Urine Protein 2+H, Urine Glucose (UA) NEGATIVE, Urine Ketones TRACEH, Urine Blood 2+H, Urine Nitrite NEGATIVE, Urine Bilirubin NEGATIVE, Urine Urobilinogen 0.2, Urine Leukocyte Esterase TRACEH, Urine WBC (Auto) 13H, Urine RBC (Auto) 6H, Urine Hyaline Casts (Auto) 0, Urine Bacteria (Auto) NEGATIVE, Urine Squamous Epithelial Cells 0, Urine Mucus (Auto) SMALL, Urine Sperm (Auto) 02/19/21 06:25: Immature Granulocyte % (Auto) 0.4, Neutrophils (%) (Auto) 81.0H, Lymphocytes (%) (Auto) 10.0L, Monocytes (%) (Auto) 8.1H, Eosinophils (%) (Auto) 0.2, Basophils (%) (Auto) 0.3, Neutrophils # (Auto) 9.2H, Lymphocytes # (Auto) 1.1L, Monocytes # (Auto) 0.9H, Eosinophils # (Auto) 0.0, Basophils # (Auto) 0.0, Nucleated Red Blood Cells % (auto) 0.0, Anion Gap 7L, Glomerular Filtration Rate > 60.0, Calcium Level 8.9, Total Bilirubin 0.9, Aspartate Amino Transf (AST/SGOT) 17, Alanine Aminotransferase (ALT/SGPT) 22, Alkaline Phosphatase 84, Total Protein 6.4, Albumin 2.8L, Albumin/Globulin Ratio 0.8L, Magnesium Level 1.6L CBC/BMP Laboratory Tests 02/18/21 14:50 02/19/21 06:25 Microbiology Microbiology 02/18/21 Urine Culture, Received Pending 02/18/21 Blood Culture, Received Pending 02/18/21 Blood Culture - Preliminary, Resulted MILDRED HARGROVE MD Feb 19, 2021 10:46
[2021-02-19] MEDS: CEFEPIME HCL 1 GM in D5W MINI-BAG PLUS 50 ML IV SCH ×2 (11:14→20:27)
[2021-02-19] MEDS: TELMISARTAN 20 MG TAB PO SCH ×2 (11:15→20:27)
[2021-02-19 12:00] VITALS: BP 136/81
[2021-02-19] MEDS: VANCOMYCIN HCL 750 MG, VIAL MATE ADAPTER 1 EACH in NS 250 ML IV SCH (12:45)
[2021-02-19] MEDS ORDERED: VANCOMYCIN HCL 750 MG, VIAL MATE ADAPTER 1 EACH in NS 250 ML IV ONE (13:00)
[2021-02-19 16:00] VITALS: BP 132/70
[2021-02-19 20:00] VITALS: BP 137/91
[2021-02-19] MEDS ORDERED: SIMVASTATIN 20 MG TAB PO SCH (21:00)
[2021-02-20] VITALS: BP 106/94
[2021-02-20] MEDS: VANCOMYCIN HCL 750 MG, VIAL MATE ADAPTER 1 EACH in NS 250 ML IV SCH (00:59)
[2021-02-20 04:00] VITALS: BP 130/93
[2021-02-20 05:46] LABS: BASO # 0.1 10^3/uL (0.0-0.2); BASO % 0.5 % (0.0-1.0); EOS # 0.2 10^3/uL (0.0-0.5); EOS % 1.7 % (0.0-3.0); HEMATOCRIT 40.9 % (36.0-47.0); HEMOGLOBIN 13.8 g/dl (12.0-15.5); LYMPH # 1.4 10^3/uL (1.5-5.0); LYMPH % 14.8 % (24.0-44.0); MEAN CORPUSCULAR HEMOGLOBIN 29.4 pg (27.0-33.0); MEAN CORPUSCULAR HGB CONC 33.7 g/dl (32.0-36.5); MONO % 9.9 % (2.0-8.0); NEUTROPHILS % 72.7 % (36.0-66.0); PLATELET COUNT, AUTOMATED 140 10^3/uL (150-450); WHITE BLOOD COUNT 9.6 10^3/uL (4.0-10.0)
[2021-02-20 05:56] LABS: ALBUMIN 2.7 GM/DL (3.2-5.2); ALT/SGPT 23 U/L (12-78); BILIRUBIN,TOTAL 0.7 MG/DL (0.2-1.0); BLOOD UREA NITROGEN 12 MG/DL (7-18); CALCIUM LEVEL 8.4 MG/DL (8.8-10.2); CARBON DIOXIDE LEVEL 25 MEQ/L (21-32); CHLORIDE LEVEL 109 MEQ/L (98-107); CREATININE FOR GFR 0.71 MG/DL (0.55-1.30); GLOMERULAR FILTRATION RATE > 60.0 (>32); GLUCOSE, FASTING 133 MG/DL (70-100); MAGNESIUM LEVEL 1.7 MG/DL (1.8-2.4); POTASSIUM SERUM 3.9 MEQ/L (3.5-5.1); SODIUM LEVEL 138 MEQ/L (136-145); TOTAL PROTEIN 5.9 GM/DL (6.4-8.2)
[2021-02-20 08:00] VITALS: BP 159/93
[2021-02-20 09:37] VITALS: BP 159/93
[2021-02-20] MEDS: SPIRONOLACTONE 25 MG TAB PO SCH (09:37)
[2021-02-20] MEDS: METOPROLOL SUCC (TopROL XL) 50MG **XL** TAB PO SCH (09:37)
[2021-02-20] MEDS: ASPIRIN 81MG ENTERIC TABLET PO SCH (09:37)
[2021-02-20] MEDS: APIXABAN 5 MG TAB (ELIQUIS) PO SCH (09:37)
[2021-02-20 12:00] VITALS: BP 123/74
[2021-02-20] MEDS ORDERED: VANCOMYCIN HCL 1,000 MG, VIAL MATE ADAPTER 1 EACH in NS 250 ML IV SCH (12:00)
[2021-02-20] MEDS ORDERED: CEFD300CAP PO (12:16)
--- NOTE | 2021-02-20 12:25 | DS.PDOC ---
Discharge Summary General Date of Admission Feb 18, 2021 at 18:07 Date of Discharge 02/20/21 Discharge Summary PROCEDURES PERFORMED DURING STAY: [None]. DISCHARGE DIAGNOSES: Cystitis and pyelonephritis Sepsis Uterine prolapse Enlarged multinodular thyroid Secondary diagnosis CAD status post stenting, atrial fibrillation on Eliquis, hypertension CHF unspecified, colon cancer status post resection, COMPLICATIONS/CHIEF COMPLAINT: Atrial Fib W/ Rvr, Pyelonephritis Of Left Kidney. HOSPITAL COURSE: 85-year-old female with a past medical history of CAD status post stenting, atrial fibrillation on Eliquis, CHF unspecified, colon cancer status post resection, presented to the ER from home with symptoms of dysuria and mild confusion. Found to have a fever of 104 in the emergency department. She has leukocytosis of 11,000. LA 1.5. Also found to be in atrial fibrillation with RVR, which improved after her fever decreased with Tylenol. CT chest was unremarkable however CT abdomen showing perinephric stranding involving the left kidney suggestive of possible early cystitis and pyelonephritis. Patient was admitted for sepsis due to cystitis and pyelonephritis. Sepsis Due to cystitis and pyelonephritis: Prelim blood cultures 1 set/2 sets growing gram positive cocci in clusters and gram positive rods. This is likely going to be skin contaminant Another 2 sets of cultures were sent on 02/19/2021 are negative Urine culture E. coli Will discharge with cefdinir Cystitis and pyelonephritis Urine culture E. coli Will discharge with cefdinir Afib with RVR: HR in 90s. Improved with treatment of sepsis. Continue with the metoprolol and Eliquis Echo pending Hx of Colon Ca: s/[place] [address] Millan. HTN Telmisartain 20 mg qhs. Amlodipine 10 mg daioy. CAD: S/p stenting. c/w ASA, eliquis. metoprolol. Simvastatin. Nitroglycerin. Enlarged multinodular thyroid Will need thyroid ultrasound as an outpatient DISCHARGE MEDICATIONS: Please see below. ALLERGIES: Please see below. PHYSICAL EXAMINATION ON DISCHARGE: VITAL SIGNS: Please see below. General: NAD, comfortable HEENT: PERRLA, EOMI, sclerae clear Neck: supple, normal ROM, no JVD Respiratory: lungs CTAB, no wheeze, no rales, no crackles CVS: normal S1, S2, no murmurs Abdo: Soft, nontender bowel sounds normal, uterine prolapse noted Extremities: no edema, pulses 2+ MSK: no joint deformities, normal ROM Neuro: no focal neuro deficits, moving all 4 extremities, CN2-12 intact. Strength 5/5 in all 4 extremities. No nystagmus. Psych: calm, cooperative, AAO x 3 LABORATORY DATA: Please see below. ACTIVITY: [As tolerated]. DIET: As tolerated DISCHARGE PLAN: Home DISCHARGE INSTRUCTIONS: Follow-up with PMD in 1 week Suggested referral to [facility] for uterine prolapse Needs thyroid ultrasound for multinodular enlarged thyroid ITEMS TO FOLLOWUP ON ON OUTPATIENT: Follow-up final echo results DISCHARGE CONDITION: [Stable]. TIME SPENT ON DISCHARGE: 35 minutes. Vital Signs/I&Os Vital Signs Date Time Temp Pulse Resp B/P (MAP) Pulse Ox O2 Delivery O2 Flow Rate FiO2 02/20/21 09:37 90 159/93 02/20/21 08:00 97.0 22 95 Room Air 02/18/21 19:15 2.0 I&O- Last 24 Hours up to 6 AM 02/20/21 06:00 Intake Total 1505 ml Output Total 3005 ml Balance -1500 ml Laboratory Data Labs 24H Laboratory Tests 2 02/20/21 05:14: Immature Granulocyte % (Auto) 0.4, Neutrophils (%) (Auto) 72.7H, Lymphocytes (%) (Auto) 14.8L, Monocytes (%) (Auto) 9.9H, Eosinophils (%) (Auto) 1.7, Basophils (%) (Auto) 0.5, Neutrophils # (Auto) 7.0, Lymphocytes # (Auto) 1.4L, Monocytes # (Auto) 1.0H, Eosinophils # (Auto) 0.2, Basophils # (Auto) 0.1, Nucleated Red Blood Cells % (auto) 0.0, Anion Gap 4L, Glomerular Filtration Rate > 60.0, Calcium Level 8.4L, Magnesium Level 1.7L, Total Bilirubin 0.7, Aspartate Amino Transf (AST/SGOT) 21, Alanine Aminotransferase (ALT/SGPT) 23, Alkaline Phosphatase 79, Total Protein 5.9L, Albumin 2.7L, Albumin/Globulin Ratio 0.8L 02/20/21 11:15: Vancomycin Level Trough 7.4L CBC/BMP Laboratory Tests 02/20/21 05:14 Microbiology Microbiology 02/19/21 Blood Culture - Preliminary, Resulted No growth after 24 hours . All specim... 02/19/21 Blood Culture - Preliminary, Resulted No growth after 24 hours . All specim... 02/18/21 Urine Culture - Final, Complete Escherichia Coli 02/18/21 Blood Culture - Preliminary, Resulted No growth after 24 hours . All specim... 02/18/21 Blood Culture - Preliminary, Resulted Discharge Medications Scheduled Amlodipine Besylate (Amlodipine Besylate) 10 Mg Tablet, 10 MG PO DAILY, (Reported) Apixaban (Eliquis) 5 Mg Tab, 5 MG PO BID, (Reported) Aspirin (Aspirin EC) 81 Mg Tab, 81 MG PO DAILY, (Reported) Cefdinir (Cefdinir) 300 Mg Capsule, 300 MG PO BID Metoprolol Succinate (Metoprolol Succinate) 50 Mg Tab.er.24h, 50 MG PO DAILY, ( Reported) Simvastatin (Simvastatin) 40 Mg Tab, 20 MG PO DAILY, (Reported) Spironolactone (Spironolactone) 25 Mg Tab, 25 MG PO DAILY, (Reported) Telmisartan (Telmisartan) 20 Mg Tablet, 20 MG PO QHS, (Reported) Scheduled PRN Nitroglycerin (Nitrostat) 0.4 Mg Subl, 0.4 MG SL NITRO PRN for CHEST PAIN, (Reported) Allergies Coded Allergies: Penicillins (Verified Adverse Reaction, Mild, VOMITING, 02/19/21) Ana Maria Thomas MD Feb 20, 2021 12:25
[2021-02-20] MEDS ORDERED: MAG SULF 1GM/100ML (MAG RUN) 1 GM in IV 1 EA IV ONE (13:00)
--- NOTE | 2021-02-22 10:55 | IPNPDOC ---
Text Note Date of Service The patient was seen on 02/22/21. NOTE Noted positive blood culture in 1/4 sets growing Bacillus Sp non anthracis and staph caprae. Both are skin contaminants no further intervention needed. VS,Fishbone, I+O VS, Fishbone, I+O Vital Signs Date Time Temp Pulse Resp B/P (MAP) Pulse Ox O2 Delivery O2 Flow Rate FiO2 02/20/21 12:00 97.1 75 20 123/74 (90) 94 Room Air 02/18/21 19:15 2.0 Ana Maria Thomas MD Feb 22, 2021 10:55
== END 2021-02-20 14:54 | disposition home health service (06) | DRG 872 ==
LOC: EDBD 14:27 → M ED 14:27 → M ED INP 18:07 → M PCU 21:02
PROVIDERS: ADMIT Family Medicine; ATTEND Internal Medicine Nephrology
DX: A41.9 Sepsis, unspecified organism (principal); N10 Acute pyelonephritis; I48.91 Unspecified atrial fibrillation; I25.10 Atherosclerotic heart disease of native coronary artery without angina pectoris; K21.9 Gastro-esophageal reflux disease without esophagitis; E78.5 Hyperlipidemia, unspecified; N30.90 Cystitis, unspecified without hematuria; M19.90 Unspecified osteoarthritis, unspecified site; B96.20 Unspecified Escherichia coli [E. coli] as the cause of diseases classified elsewhere; E04.2 Nontoxic multinodular goiter; Z90.49 Acquired absence of other specified parts of digestive tract; Z20.822 Contact with and (suspected) exposure to COVID-19; Z95.5 Presence of coronary angioplasty implant and graft; Z79.01 Long term (current) use of anticoagulants; Z79.899 Other long term (current) drug therapy; Z79.82 Long term (current) use of aspirin; Z88.0 Allergy status to penicillin; Z85.038 Personal history of other malignant neoplasm of large intestine

== ENCOUNTER → 2021-03-30 | Outpatient (REF) | payer MEDICARE, OTHER ==
[~2021-03-30] MED LIST changes: +AMLO1TAB25 PO; +CEFD300CAP PO; +METO1TAB7 PO; +PATIENT COMMENT; +TELM1TAB33 PO
== END ==
LOC: M LAB REF 16:44
PROVIDERS: ATTEND Nurse Practitioner Family
DX: N39.0 Urinary tract infection, site not specified (principal); N18.2 Chronic kidney disease, stage 2 (mild); D44.2 Neoplasm of uncertain behavior of parathyroid gland; I15.0 Renovascular hypertension

== ENCOUNTER → 2021-07-07 | Outpatient (REF) | payer MEDICARE ==
[2021-07-11 13:59] LABS: ALBUMIN 3.7 GM/DL (3.2-5.2); CALCIUM LEVEL 8.8 MG/DL (8.8-10.2); CREATININE FOR GFR 1.03 MG/DL (0.55-1.30); GLOMERULAR FILTRATION RATE 53.8 (>32); PHOSPHORUS LEVEL 3.5 MG/DL (2.5-4.9); POTASSIUM SERUM 4.8 MEQ/L (3.5-5.1)
[2021-07-11 14:10] LABS: PTH INTACT 91.2 PG/ML (18.5-88.0)
== END ==
LOC: M LAB REF 13:34
PROVIDERS: ATTEND Nurse Practitioner Family
DX: N18.2 Chronic kidney disease, stage 2 (mild) (principal); I15.0 Renovascular hypertension; D44.2 Neoplasm of uncertain behavior of parathyroid gland

== ENCOUNTER → 2021-07-07 | Outpatient (CLI) | payer MEDICARE, OTHER ==
[2021-07-07 10:09] LABS: BASO % 0.6 % (0.0-1.0); EOS # 0.2 10^3/uL (0.0-0.5); EOS % 2.9 % (0.0-3.0); HEMATOCRIT 46.6 % (36.0-47.0); HEMOGLOBIN 15.3 g/dl (12.0-15.5); LYMPH # 1.7 10^3/uL (1.5-5.0); LYMPH % 23.9 % (24.0-44.0); MEAN CORPUSCULAR HEMOGLOBIN 29.1 pg (27.0-33.0); MEAN CORPUSCULAR HGB CONC 32.8 g/dl (32.0-36.5); MEAN CORPUSCULAR VOLUME 88.8 fl (80.0-96.0); MONO # 0.5 10^3/uL (0.0-0.8); MONO % 6.5 % (2.0-8.0); NEUTROPHILS # 4.6 10^3/uL (1.5-8.5); NEUTROPHILS % 65.5 % (36.0-66.0); PLATELET COUNT, AUTOMATED 183 10^3/uL (150-450); RED BLOOD COUNT 5.25 10^6/uL (4.00-5.40)
[2021-07-07 10:44] LABS: ALBUMIN 3.6 GM/DL (3.2-5.2); BILIRUBIN,TOTAL 0.4 MG/DL (0.2-1.0); CALCIUM LEVEL 8.8 MG/DL (8.8-10.2); CHOLESTEROL RISK RATIO 3.972 (<5); CREATININE FOR GFR 1.01 MG/DL (0.55-1.30); GLOMERULAR FILTRATION RATE 55.1 (>32); MAGNESIUM LEVEL 1.4 MG/DL (1.8-2.4); POTASSIUM SERUM 4.7 MEQ/L (3.5-5.1); TOTAL PROTEIN 6.5 GM/DL (6.4-8.2)
== END ==
LOC: M LAB 09:32
PROVIDERS: ATTEND Physician Assistant
DX: I25.10 Atherosclerotic heart disease of native coronary artery without angina pectoris (principal); I48.21 Permanent atrial fibrillation; E78.2 Mixed hyperlipidemia

== ENCOUNTER 2022-02-07 11:34 | Emergency (ER) | payer MEDICARE, OTHER ==
[2022-02-07] MEDS ORDERED: BOOSTRIX/ADACEL VACCINE (DIPHTH/PERTUSS/ACELL/TETANUS) 0.5ML SYR IM.IMMUN ONE (11:50)
[2022-02-07] MEDS ORDERED: ACETAMINOPHEN 500 MG TAB PO ONE (12:55)
[2022-02-07] MEDS ORDERED: ONDANSETRON 4MG ORAL DISINTEGRATING TAB PO ONE (12:55)
[2022-02-07 14:05] VITALS: BP 141/78
== END 2022-02-07 15:09 | disposition home or self-care (01) ==
LOC: M ED 11:34 → EDBD 11:34 → M ED 15:09
DX: S00.01XA Abrasion of scalp, initial encounter (principal); S00.03XA Contusion of scalp, initial encounter; W10.8XXA Fall (on) (from) other stairs and steps, initial encounter; Y92.018 Other place in single-family (private) house as the place of occurrence of the external cause; I50.9 Heart failure, unspecified; I48.91 Unspecified atrial fibrillation; Z79.899 Other long term (current) drug therapy; Z79.82 Long term (current) use of aspirin; Z79.01 Long term (current) use of anticoagulants; Z88.0 Allergy status to penicillin